=== PATIENT | female | born 1995 | race Caucasian/White ===

== ENCOUNTER 2020-10-26 21:43 | Emergency (ER) | payer OTHER | END 2020-10-26 23:30 | disposition home or self-care (01) | LOC: ER1 21:43 | DX: S01.01XA Laceration without foreign body of scalp, initial encounter (principal); W01.198A Fall on same level from slipping, tripping and stumbling with subsequent striking against other object, initial encounter; Y92.481 Parking lot as the place of occurrence of the external cause | CPT/HCPCS: 99283 ==

== ENCOUNTER → 2020-11-28 | Outpatient (CLI) | payer OTHER | LOC: KOH-I 10-31 14:00 | DX: J32.9 Chronic sinusitis, unspecified (principal); J33.8 Other polyp of sinus | CPT/HCPCS: 70486 ==